=== PATIENT | male | born 1990 | race Caucasian/White ===

== ENCOUNTER 2022-02-20 00:40 | Emergency (ER) | payer SELFPAY ==
[~2022-02-20] VITALS: Ht 172.7 cm; Wt 77.1 kg
[2022-02-20 00:58] VITALS: BP_SYST 146
[2022-02-20 01:35] VITALS: BP_SYST 130
== END 2022-02-20 01:35 ==
LOC: SED 00:40
DX: S00.83XA Contusion of other part of head, initial encounter (principal); Y04.0XXA Assault by unarmed brawl or fight, initial encounter; Z79.899 Other long term (current) drug therapy; Y93.89 Activity, other specified; Y92.89 Other specified places as the place of occurrence of the external cause; Y99.8 Other external cause status
CPT/HCPCS: 99283